=== PATIENT | male | born 1935 | race African-American/Black ===

== ENCOUNTER 2023-11-23 13:41 | Emergency (ER) | payer OTHER ==
[2023-11-23 15:22] LABS: Albumin 3.6 g/dL (3.4-5.0); Anion Gap 9.3 mEq/L (5.0-15.0); Bilirubin Direct 0.3 mg/dL (0-0.2); Bilirubin Indirect, Calculated 2.5 mg/dL (0.2-0.8); Bilirubin Total 2.8 mg/dL (0.2-1.0); Globulin 3.5 g/dL (2.3-3.5); Magnesium 2.4 mg/dL (1.6-2.4); Potassium 4.3 mEq/L (3.5-5.1); Protein, Total 7.1 g/dL (6.4-8.2); Troponin High Sensitivity 8.7 pg/mL (<58.9)
[2023-11-23 16:35] LABS: Absolute Basophils 0.1 K/uL (0-0.5); Absolute Eosinophils 0.1 K/uL (0-0.5); Absolute Lymphocytes (CBC) 1.1 K/uL (0.7-4.9); Absolute Monocytes 0.7 K/uL (0.1-1.3); Absolute Neutrophil 4.6 K/uL (1.8-8.0); Basophils % 1.1 % (0-1.3); Eosinophils % 1.2 % (0-4.4); Hematocrit 25.6 % (39.6-49.0); Hemoglobin 8.4 g/dL (13.6-17.9); MCH 27.5 pg (27.0-35.0); MCHC 32.7 g/dL (32.0-36.0); MCV 84.1 fL (80-100); MPV 8.1 fL (7.6-11.3); Neutrophils % 70.7 % (41.7-73.7); Nucleated RBC Absolute Count 0.2 (0-0); Nucleated Red Blood Cells % 2.9 % (0-0); Platelets 167 thou/uL (152-406); RBC Red Blood Cell Count 3.05 M/uL (4.33-5.43); Red Cell Distribution Width 27.2 % (12.1-15.2)
--- NOTE | 2023-11-23 17:00 | ER ---
Nurse's Notes [facility] Name: Germaine Rothman Age: 88 yrs Sex: Male : 1935 Arrival Date: 11/23/2023 Time: 13:41 Bed 8 Private MD: Diagnosis: Syncope Near Presentation: 11/22 14:12 Chief complaint: Dizziness, headache, malaise, and SOB x 5 days. Being treated for MDS, hb Aranesp every 2 weeks, and blood transfusions every 1-[address] Elan Vega [facility]. Coronavirus screen: At this time, the client does not indicate any symptoms associated with coronavirus-19. Ebola Screen: No symptoms or risks identified at this time. Initial Sepsis Screen: Does the patient meet any 2 criteria? No. Patient's initial sepsis screen is negative. Does the patient have a suspected source of infection? No. Patient's initial sepsis screen is negative. Risk Assessment: Do you want to hurt yourself or someone else? Patient reports no desire to harm self or others. Onset of symptoms was November 18, 2023. 14:12 Method Of Arrival: Ambulatory 14:12 Acuity: GILLES 3 hb Triage Assessment: 14:19 Headache History: Denies prior headaches. General: Appears in no apparent distress. hb Behavior is calm, cooperative. Pain: Pain currently is 7 out of 10 on a pain scale. Neuro: Level of Consciousness is awake, alert, obeys commands, Oriented to person, place, time, situation. Cardiovascular: Patient's skin is warm and dry. Respiratory: Reports shortness of breath Respiratory effort is even, unlabored, Respiratory pattern is regular, symmetrical. 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 - Infectious Disease History:: Denies. - Social history:: Smoking status: Patient denies any tobacco usage or history of. - Family history:: not pertinent. Screenin:25 [facility] ED Fall Risk Assessment (Adult) History of falling in the last 3 months, mb9 including since admission No falls in past 3 months (0 pts) Confusion or Disorientation No (0 pts) Intoxicated or Sedated No (0 pts) Impaired Gait No (0 pts) Mobility Assist Device Used No (0 pt) Altered Elimination No (0 pt) Score/Fall Risk Level 0 - 2 = Low Risk Oriented to surroundings, Maintained a safe environment, Educated pt \\T\\ family on fall prevention, incl call for assistance when getting out of bed. Abuse screen: Denies threats or abuse. Nutritional screening: No deficits noted. Tuberculosis screening: No symptoms or risk factors identified. Assessment: 14:52 General: Appears in no apparent distress. Behavior is calm, cooperative. Pain: Denies mb9 pain. Neuro: Ramos Agitation-Sedation Scale (RASS): 0 - Alert and Calm Level of Consciousness is awake, alert, obeys commands, Oriented to person, place, time, situation, Appropriate for age Reports dizziness, weakness. Cardiovascular: Heart tones S1 S2 present Patient's skin is warm and dry. Respiratory: Airway is patent Respiratory effort is even, unlabored, Respiratory pattern is regular, symmetrical, Breath sounds are clear bilaterally. GI: No signs and/or symptoms were reported involving the gastrointestinal system. : No signs and/or symptoms were reported regarding the genitourinary system. EENT: No signs and/or symptoms were reported regarding the EENT system. Derm: Skin is pink, warm \\T\\ dry. Musculoskeletal: Range of motion: intact in all extremities. 15:46 Reassessment: No changes from previously documented assessment. Patient and/or family mb9 updated on plan of care and expected duration. Pain level reassessed. Patient is alert, oriented x 3, equal unlabored respirations, skin warm/dry/pink. 16:48 Reassessment: No changes from previously documented assessment. Patient and/or family mb9 updated on plan of care and expected duration. Pain level reassessed. Patient is alert, oriented x 3, equal unlabored respirations, skin warm/dry/pink. 17:08 Reassessment: pt states, "I don't want a redraw of my CBC. I'm ready to go home." Dr. maureen Gooden notified and at bedside speaking with family. Vital Signs: 14:12 BP 136 / 47; Pulse 66; Resp 20; Temp 98.1; Pulse Ox 100% on R/A; Weight 68.04 kg; hb Height 5 ft. 8 in. ; Pain 7/10; 14:51 BP 138 / 46; Pulse 67; Resp 16; Pulse Ox 99% ; ko1 16:48 BP 120 / 47; Pulse 66; Resp 16; Pulse Ox 100% on R/A; mb9 14:12 Body Mass Index 22.81 (68.04 kg, 172.72 cm) hb 14:12 Pain Scale: Adult hb ED Course: 13:45 Patient arrived in ED. mr 14:04 James Gooden MD is Attending Physician. rt 14:13 Triage completed. hb 14:19 Lana Lake, RN is Primary Nurse. mb9 14:19 EKG completed in triage. Results shown to MD. mb9 14:19 Placed in gown. Bed in low position. Call light in reach. Side rails up X 1. Provided maureen Education on: press call light if needing anything. Client placed on continuous cardiac and pulse oximetry monitoring. NIBP monitoring applied. quality assurance monitor chassis on. 14:19 EKG done, by ED staff, reviewed by James Gooden MD. hb 14:35 Missed attempt(s): 22 gauge in right antecubital area. 26 gauge. mb9 14:35 Initial lab(s) drawn, by me, sent to lab. mb9 14:52 Type And Screen Sent. mb9 14:53 Missed attempt(s): 22 gauge in left forearm. Bleeding controlled, band aid applied, mb9 catheter tip intact. 14:54 Arm band placed on. mb9 14:54 No provider procedures requiring assistance completed. mb9 15:04 Radiology exam delayed due to refused cxr until speaking to provider. rs4 17:15 Patient did not have IV access during this emergency room visit. [email or web address] Administered Medications: No medications were administered Medication: 14:25 VIS not applicable for this client. mb9 Outcome: 17:00 Discharge ordered by MD. rt 17:15 Discharged to home ambulatory, with family, maureen 17:15 Condition: stable 17:15 Discharge instructions given to patient, family, Instructed on discharge instructions, follow up and referral plans. Demonstrated understanding of instructions, follow-up care, 17:16 Patient left the ED. mb9 Signatures: Lana Barrett, Real Reg mr GoodmanJulissa, RN RN hb Rosalia Preston RN RN Lana Richardson RN RN mb9 Mishel Mcnair rs4 James Gooden MD MD rt Corrections: (The following items were deleted from the chart) 14:19 14:12 Chief complaint: Dizziness, headache, malaise, and SOB x 5 days. hb hb 14:19 14:19 EKG completed in triage. Results shown to MD. mb9 mb9
--- NOTE | 2023-11-23 17:00 | EDPHYS ---
Physician Documentation [facility] Name: Germaine Rothman Age: 88 yrs Sex: Male : 1935 Arrival Date: 11/23/2023 Time: 13:41 Bed 8 Private MD: ED Physician James Gooden HPI: 11/22 17:54 This 88 yrs old Black Male presents to ER via Ambulatory with complaints of Dizziness, rt Headache. 17:54 Patient presents to the ED with dizziness, lightheadedness, generalized loss, malaise rt about 4 days. Patient has history of spastic disorder, states that is how he feels when he is a blood transfusion. He denies headache to me, denies other acute complaints, symptoms are moderate in severity, no other aggravating or alleviating factors.. 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 - Infectious Disease History:: Denies. - Social history:: Smoking status: Patient denies any tobacco usage or history of. - Family history:: not pertinent. ROS: 17:54 Cardiovascular: Negative for chest pain, palpitations, and edema, Respiratory: Negative rt for shortness of breath, cough, wheezing, and pleuritic chest pain, Abdomen/GI: Negative for abdominal pain, nausea, vomiting, diarrhea, and constipation, MS/Extremity: Negative for injury and deformity, Skin: Negative for injury, rash, and discoloration, 17:54 Constitutional: Positive for malaise, Negative for fever, 17:54 Neuro: Positive for dizziness, weakness, Exam: 17:54 Constitutional: This is a well developed, well nourished patient who is awake, alert, rt and in no acute distress. Head/Face: Normocephalic, atraumatic. Chest/axilla: Normal chest wall appearance and motion. Nontender with no deformity. No lesions are appreciated. Cardiovascular: Regular rate and rhythm with a normal S1 and S2. No gallops, murmurs, or rubs. Normal PMI, no JVD. No pulse deficits. Respiratory: Lungs have equal breath sounds bilaterally, clear to auscultation and percussion. No rales, rhonchi or wheezes noted. No increased work of breathing, no retractions or nasal flaring. Abdomen/GI: Soft, non-tender, with normal bowel sounds. No distension or tympany. No guarding or rebound. No evidence of tenderness throughout. Skin: Warm, dry with normal turgor. Normal color with no rashes, no lesions, and no evidence of cellulitis. MS/ Extremity: Pulses equal, no cyanosis. Neurovascular intact. Full, normal range of motion. Neuro: Awake and alert, GCS 15, oriented to person, place, time, and situation. Cranial nerves II-XII grossly intact. Motor strength 5/5 in all extremities. Sensory grossly intact. Cerebellar exam normal. Normal gait. Psych: Awake, alert, with orientation to person, place and time. Behavior, mood, and affect are within normal limits. Vital Signs: 14:12 BP 136 / 47; Pulse 66; Resp 20; Temp 98.1; Pulse Ox 100% on R/A; Weight 68.04 kg; hb Height 5 ft. 8 in. ; Pain 7/10; 14:51 BP 138 / 46; Pulse 67; Resp 16; Pulse Ox 99% ; ko1 16:48 BP 120 / 47; Pulse 66; Resp 16; Pulse Ox 100% on R/A; mb9 14:12 Body Mass Index 22.81 (68.04 kg, 172.72 cm) hb 14:12 Pain Scale: Adult hb MDM: 14:26 Patient medically screened. rt 17:54 Differential diagnosis: Anemia, dehydration, electrolyte disturbance. Data reviewed: rt vital signs, nurses notes, lab test result(s). Consideration of Admission/Observation Escalation of care including admission/observation considered. Offered to continue with further evaluations, treatments to include IV fluids, patient declines this states that he wishes to follow-up with his physician in the office.. Test considered but Not performed: X-ray: Patient declines x-ray. 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 Counseling: I had a detailed discussion with the patient and/or guardian regarding the historical points, exam findings, and any diagnostic results supporting the discharge/admit diagnosis, lab results, the need for outpatient follow up, to return to the emergency department if symptoms worsen or persist or if there are any questions or concerns that arise at home. 11/22 14:34 Order name: Basic Metabolic Panel; Complete Time: 15:33 rt 11/22 14:34 Order name: CBC with Diff rt 11/22 14:34 Order name: LFT's; Complete Time: 15:33 rt 11/22 14:34 Order name: Magnesium; Complete Time: 15:33 rt 11/22 14:34 Order name: Troponin HS; Complete Time: 15:33 rt 11/22 14:34 Order name: Type And Screen rt 11/22 16:42 Order name: CBC Smear Scan EDMS 11/22 14:34 Order name: Cardiac monitoring; Complete Time: 14:52 rt 11/22 14:34 Order name: EKG - Nurse/Tech; Complete Time: 14:37 rt 11/22 14:34 Order name: IV Saline Lock; Complete Time: 14:52 rt 11/22 14:34 Order name: Labs collected and sent; Complete Time: 14:52 rt 11/22 14:34 Order name: O2 Per Protocol; Complete Time: 14:52 rt 11/22 14:34 Order name: O2 Sat Monitoring; Complete Time: 14:52 rt Administered Medications: No medications were administered Disposition Summary: 11/23/23 17:00 Discharge Ordered Notes: Location: Home rt Problem: new rt Symptoms: have improved rt Condition: Stable rt Diagnosis - Syncope Near rt Followup: rt - With: Private Physician - When: 2 - 3 days - Reason: Discharge Instructions: - Discharge Summary Sheet rt - Near-Syncope rt Forms: - Medication Reconciliation Form rt - Antibiotic Education rt - Prescription Opioid Use rt - Patient Portal Instructions rt - Leadership Thank You Letter rt Signatures: Dispatcher [employer] Julissa Lewis RN RN hb [place], Ryan, MD MD rt Corrections: (The following items were deleted from the chart) 14:34 14:34 BASIC METABOLIC PANEL+C.LAB.BRZ ordered. EDMS EDMS 14:34 14:34 CBC+H.LAB.BRZ ordered. EDMS EDMS 14:34 14:34 HEPATIC FUNCTION+C.LAB.BRZ ordered. EDMS EDMS 14:34 14:34 MAGNESIUM+C.LAB.BRZ ordered. EDMS EDMS 14:34 14:34 Troponin High Sensitivity+C.LAB.BRZ ordered. EDMS EDMS 14:34 14:34 TYPE AND SCREEN+BB.LAB.BRZ ordered. EDMS EDMS 14:35 14:35 Chest Single View+RAD.RAD.BRZ ordered. EDMS EDMS
[2023-11-23 17:37] VITALS: BP 120/47; TEMP 98.1; O2SAT 100
[2023-11-23 17:50] LABS: Anisocytosis 3+; Blood Morphology Comment NOTED (NOT SEEN); Platelet Estimate ADEQ; White Blood Cell Scan OK (OK)
[2023-11-23 17:51] LABS: Hypochromasia 2+; Polychromasia 2+
--- NOTE | 2023-11-24 14:14 | EKG ---
Test Date: 2023-11-23 Test Time: 14:19:07 Reconnaissance Man: LOCO MEASUREMENT RESULTS: Intervals: Rate: 67 SC: 156 QRSD: 102 QT: 396 QTc: 418 [place]: P: 37 SC: 156 QRS: -9 T: 62 INTERPRETIVE STATEMENTS: Normal sinus rhythm with sinus arrhythmia Normal ECG No previous ECG available for comparison Electronically Signed On 11-24-23 14:11:34 CDT by Esteban Das
== END 2023-11-23 17:16 | disposition home or self-care (01) ==
LOC: ER 13:41
DX: R55 Syncope and collapse (principal); R51.9 Headache, unspecified; R53.81 Other malaise; R53.1 Weakness
CPT/HCPCS: 36415; 80048; 80076; 83735; 84484; 85025; 86850; 86900; 86901; 93005; 99284